=== PATIENT | male | born 1940 | race Caucasian/White ===

== ENCOUNTER 2021-05-01 03:14 | Emergency (ER) | payer MEDICARE, OTHER ==
[2021-05-01] MEDS ORDERED: Pantoprazole 40 MG Vial IVPUSH ONE (04:33)
--- NOTE | 2021-05-01 04:37 | EDM.PDOC ---
ED HPI GENERAL MEDICAL PROBLEM - General Chief Complaint: Abdominal Pain Stated Complaint: Upper Abdominal Pain Time Seen by Provider: 05/01/21 04:34 Source of Information: Reports: Patient History Limitations: Reports: No Limitations - History of Present Illness INITIAL COMMENTS - FREE TEXT/NARRATIVE: Presents with epigastric pain after rolling over in bed at 0100. Pain has im proved. Denies nausea. Came to the ED because was unsure if this was a heart attack. Denies prior h/o CAD or cholelithiasis. Patient ate a meal of greasy potatoes last night. PMHx includes HTN, HLD, and GERD. Location: Reports: Abdomen upper epigastric Pain Score (Numeric/FACES): 4 - Related Data Allergies Allergy/AdvReac Type Severity Reaction Status Date / Time Penicillins Allergy Cannot Verified 05/01/21 04:01 Remember Home Meds: Home Meds Cholecalciferol (Vitamin D3) [Vitamin D] 5,000 unit PO DAILY 05/01/21 [History] Losartan Potassium [Cozaar] 100 mg PO DAILY 05/01/21 [History] Omeprazole 20 mg PO DAILY 05/01/21 [History] Simvastatin 20 mg PO DAILY 05/01/21 [History] azaTHIOprine [Imuran] 50 mg PO ASDIRECTED 05/01/21 [History] hydroCHLOROthiazide [Hydrochlorothiazide] 25 mg PO DAILY 05/01/21 [History] Past Medical History Cardiovascular History: Reports: High Cholesterol, Hypertension. Denies: CAD Gastrointestinal History: Reports: GERD Neurological History: Reports: Other (See Below) Other Neuro History: myasthenia gravis - Past Surgical History Musculoskeletal Surgical History: Reports: Hip Replacement, Knee Replacement Social & Family History - Tobacco Use Tobacco Use Status *Q: Never Tobacco User ED ROS GENERAL - Review of Systems Review Of Systems: Comprehensive ROS is negative, except as noted in HPI. ED EXAM, GI/ABD - Physical Exam Exam: See Below Exam Limited By: No Limitations General Appearance: Alert, WD/WN, No Apparent Distress Ears: Normal External Exam Nose: Normal Inspection Throat/Mouth: No Airway Compromise Head: Atraumatic, Normocephalic Neck: Full Range of Motion Respiratory/Chest: No Respiratory Distress, Lungs Clear, Normal Breath Sounds Cardiovascular: Regular Rate, Rhythm, No Murmur GI/Abdominal Exam: Normal Bowel Sounds, Soft, Non-Tender, No Distention Extremities: Normal Range of Motion Neurological: Alert, Normal Cognition Psychiatric: Normal Affect, Normal Mood Skin Exam: Warm, Dry, Intact #1 Interpretation EKG Date: 05/01/21 Time: 03:45 Rhythm: NSR Rate (Beats/Min): 54 [place]: Normal P-Wave: Present QRS: Normal ST-T: Normal QT: Normal Comparison: NA - No Prior EKG Course - Vital Signs Last Recorded V/S: Last Vital Signs Temp 36.8 C 05/01/21 03:15 Pulse 54 L 05/01/21 03:15 Resp 11 L 05/01/21 05:03 BP 164/68 H 05/01/21 05:03 Pulse Ox 99 05/01/21 05:03 - Orders/Labs/Meds Orders: Active Orders 24 hr Category Date Time Status EKG Documentation Completion [RC] ASDIRECTED Care 05/01/21 03:53 Active Abdomen Pelvis w Cont [CT] Stat Exams 05/01/21 05:08 Taken EKG 12 Lead [EK] Stat Ther 05/01/21 03:52 Ordered Labs: Laboratory Tests 05/01/21 05/01/21 05/01/21 Range/Units 04:20 04:20 04:20 WBC 6.4 (3.2-10.1) x10-3/uL RBC 3.89 L (3.90-5.90) x10(6)uL Hgb 13.7 (12.9-17.7) g/dL Hct 40.5 (38.3-50.1) % MCV 104.1 H (80.8-98.7) fL MCH 35.2 H (27.0-33.3) pg MCHC 33.8 (28.7-35.3) g/dL RDW 16.1 H (12.4-15.0) % Plt Count 168 (117-477) x10(3)uL MPV 8.6 (6.7-11.0) fL Neut % (Auto) 57.4 (40.3-71.8) % Lymph % (Auto) 30.8 (15.8-45.3) % [place] % (Auto) 8.3 (5.5-15.2) % Eos % (Auto) 3.0 (0.1-6.8) % Baso % (Auto) 0.5 (0.3-3.8) % Neut # (Auto) 3.7 (1.7-6.9) x10-3/uL Lymph # (Auto) 2.0 (0.5-4.5) x10-3/uL [place] # (Auto) 0.5 (0.0-1.2) x10-3/uL Eos # (Auto) 0.2 (0.0-0.6) x10-3/uL Baso # (Auto) 0.0 (0.0-0.3) x10-3/uL Sodium 142 (135-145) mmol/L Potassium 4.1 (3.5-5.3) mmol/L Chloride 104 (100-110) mmol/L Carbon Dioxide 28 (21-32) mmol/L BUN 13 (7-18) mg/dL Creatinine 1.2 (0.70-1.30) mg/dL Est Cr Clr Drug Dosing 52.38 mL/min Estimated GFR (MDRD) 59 L (>60) BUN/Creatinine Ratio 10.8 (9-20) Glucose 108 (80-116) mg/dL Calcium 8.3 L (8.6-10.2) mg/dL Total Bilirubin 0.7 (0.1-1.3) mg/dL AST 17 (5-25) IU/L ALT 19 (12-36) U/L Alkaline Phosphatase 65 (56-112) IU/L Troponin I 7.8 (4.0-60.3) pg/mL Total Protein 6.5 (6.0-8.0) g/dL Albumin 3.3 (3.2-4.6) g/dL Globulin 3.2 g/dL Albumin/Globulin Ratio 1.0 Lipase 65 L (73-393) U/L Meds: Medications Discontinued Medications Generic Name Dose Route Start Last Admin Trade Name Freq PRN Reason Stop Dose Admin Iopamidol 100 ml 05/01/21 05:17 05/01/21 05:34 Iopamidol 755 Mg/Ml 100 Ml Bottle IV 05/01/21 05:18 100 ml . DIRECTED ONE Administration Pantoprazole Sodium 40 mg 05/01/21 04:33 05/01/21 05:14 Pantoprazole 40 Mg Vial IVPUSH 05/01/21 04:34 40 mg ONETIME ONE Administration - Radiology Interpretation Free Text/Narrative:: CT Abd/Pelvis w/ IV contrast: IMPRESSION: No specific visibly etiology for periumbilical pain. The appendix is well seen and appears normal. Incidental nonacute appearing findings as discussed above. Dictated by Da Huynh MD @ 05/01/2021 5:57:29 AM (Electronic Signature) - Re-Assessments/Exams Free Text/Narrative Re-Assessment/Exam: 05/01/21 06:08 Symptoms resolved after Protonix 40mg IV. Departure - Departure Time of Disposition: 06:08 Disposition: Home, Self-Care 01 Condition: Good Clinical Impression: Dyspepsia - Discharge Information *PRESCRIPTION DRUG MONITORING PROGRAM REVIEWED*: No *COPY OF PRESCRIPTION DRUG MONITORING REPORT IN PATIENT STARR: Not Applicable Instructions: Gastroesophageal Reflux Disease, Adult, [id number] Referrals: PCP,None [Primary Care Provider] - Forms: ED Department Discharge Additional Instructions: Avoid spicy and fatty foods. Take your medications as directed. Follow up as needed. Sepsis Event Note (ED) - Evaluation Sepsis Screening Result: No Definite Risk - Focused Exam Vital Signs: Vital Signs Temp Pulse Resp BP Pulse Ox 05/01/21 05:03 11 L 164/68 H 99 05/01/21 04:45 11 L 145/66 H 99 05/01/21 04:30 13 174/70 H 99 05/01/21 04:15 13 178/73 H 99 05/01/21 04:00 13 168/73 H 99 05/01/21 03:45 16 158/66 H 99 05/01/21 03:15 36.8 C 54 L 15 140/75 95 - My Orders Last 24 Hours: My Active Orders 05/01/21 03:52 EKG 12 Lead [EK] Stat 05/01/21 03:53 EKG Documentation Completion [RC] ASDIRECTED 05/01/21 05:08 Abdomen Pelvis w Cont [CT] Stat - Assessment/Plan Last 24 Hours: My Active Orders 05/01/21 03:52 EKG 12 Lead [EK] Stat 05/01/21 03:53 EKG Documentation Completion [RC] ASDIRECTED 05/01/21 05:08 Abdomen Pelvis w Cont [CT] Stat
[2021-05-01] MEDS ORDERED: Iopamidol 755 Mg/ML 100 ML Bottle IV ONE (05:17)
== END 2021-05-01 06:15 | disposition home or self-care (01) ==
LOC: FB.ED 03:14
DX: R10.13 Epigastric pain (principal); E78.00 Pure hypercholesterolemia, unspecified; I10 Essential (primary) hypertension; K21.9 Gastro-esophageal reflux disease without esophagitis; Z79.899 Other long term (current) drug therapy; Z88.0 Allergy status to penicillin
CPT/HCPCS: 36415; 74177; 80053; 83690; 84484; 85025; 93005; 93010; 96374; 99284; C9113; Q9967